=== PATIENT | male | born 1980 | race Caucasian/White ===

== ENCOUNTER → 2018-07-09 | Outpatient (CLI) | payer BC ==
[~2018-07-09] MED LIST: CHOL2000 PO; LEVO88TA4 PO; PANT40TA3 PO; TEST200V21 IM
== END | disposition home or self-care (01) ==
LOC: RAD 10:03
PROVIDERS: ATTEND Nurse Practitioner Family
DX: R74.8 Abnormal levels of other serum enzymes (principal)
CPT/HCPCS: 76705

== ENCOUNTER 2018-08-12 10:27 | Outpatient (CLI) | payer BC | END 2018-08-12 23:59 | disposition home or self-care (01) | LOC: CARD 10:27 | PROVIDERS: ATTEND Nurse Practitioner Family | DX: G56.02 Carpal tunnel syndrome, left upper limb (principal); G62.9 Polyneuropathy, unspecified | CPT/HCPCS: 95886; 95908 ==